=== PATIENT | female | born 1945 | race Caucasian/White ===

== ENCOUNTER → 2019-10-25 | Outpatient (CLI) | payer MEDICARE ==
[~2019-10-25] MED LIST: Bactrim Ds Tab1 EACH PO; CALCA500CH PO; CHOL10002 PO; ESTRTP VAG; FISH1000 PO; Lutein6 MG PO; PSYL5.85P PO; Super Calcium600 MG PO
[2019-10-26 14:44] LABS: Stool Occult Bld Immuno 1 Negative (NEGATIVE); Stool Occult Bld Immuno 2 Negative (NEGATIVE)
== END | disposition home or self-care (01) ==
LOC: LAB SHORT 09:00 → LAB EV 09:00
PROVIDERS: Internal Medicine Gastroenterology
DX: Z12.11 Encounter for screening for malignant neoplasm of colon (principal)
CPT/HCPCS: G0328

== ENCOUNTER → 2024-05-28 | Outpatient (CLI) | payer OTHER ==
[2024-05-28 10:33] LABS: BASOPHILS ABSOLUTE AUTO 0.03 K/mm3 (0.00-0.23); BASOPHILS PERCENT AUTO 0 % (0-2); EOSINOPHILS ABSOLUTE AUTO 0.01 K/mm3 (0.00-0.68); EOSINOPHILS PERCENT AUTO 0 % (0-6); Hematocrit 40.9 % (33.0-51.0); Hemoglobin 13.1 g/dL (11.5-16.0); IMMATURE GRAN ABSOLUTE AUTO 0.05 K/mm3 (0.00-0.10); IMMATURE GRAN PERCENT AUTO 0 % (0-1); LYMPHOCYTES ABSOLUTE AUTO 1.63 K/mm3 (0.84-5.20); LYMPHOCYTES PERCENT AUTO 13 % (21-46); MONOCYTES ABSOLUTE AUTO 0.78 K/mm3 (0.16-1.47); MONOCYTES PERCENT AUTO 6 % (4-13); Mean Corpuscular HGB 28.6 pg (26.0-34.0); Mean Corpuscular Volume 89 fL (80-100); Mean Platelet Volume 9.8 fL (9.1-12.4); NEUTROPHILS ABSOLUTE AUTO 9.86 K/mm3 (1.96-9.15); NEUTROPHILS PERCENT AUTO 80 % (41-73); Platelet Count 240 K/mm3 (150-400); RDW Coefficient Variation 12.7 % (11.7-14.2); RDW Standard Deviation 41.1 fL (35.1-46.3); Red Blood Cell Count 4.58 M/mm3 (3.80-5.20); White Blood Cell Count 12.36 K/mm3 (4.00-11.30)
[2024-05-28 10:43] LABS: Albumin, Blood 3.3 g/dL (3.4-5.0); Albumin/Globulin Ratio 0.8 (0.8-1.8); Bilirubin, Total 0.8 mg/dL (0.1-1.0); Calcium, Blood 8.6 mg/dL (8.5-10.1); Creatinine, Blood 0.91 mg/dL (0.40-1.00); Globulin, Blood 3.9 g/dL (2.2-4.0); Potassium, Blood 3.7 mmol/L (3.5-5.5); Total Protein, Blood 7.2 g/dL (6.4-8.2)
== END ==
LOC: LAB SHORT 10:27 → LAB 10:27
PROVIDERS: Physician Assistant
DX: R10.32 Left lower quadrant pain (principal); R82.81 Pyuria
CPT/HCPCS: 80053; 83690; 85025

== ENCOUNTER 2024-12-04 10:55 | Day surgery (SDC) | payer OTHER ==
[~2024-12-04] VITALS: Ht 162.6 cm; Wt 61.7 kg
[~2024-12-04 10:55] MED LIST changes: +MIRT15
[2024-12-04 12:59] VITALS: BP 103/70
== END 2024-12-04 13:22 | disposition home or self-care (01) ==
LOC: ORSCSDS 10:55
PROVIDERS: Specialist
PROC: 0DJD8ZZ Inspection of Lower Intestinal Tract, Via Natural or Artificial Opening Endoscopic (ICD-10-PCS; principal; 2024-12-04 12:30)
DX: Z12.11 Encounter for screening for malignant neoplasm of colon (principal); K64.8 Other hemorrhoids; K57.30 Diverticulosis of large intestine without perforation or abscess without bleeding; Z86.0101 Personal history of adenomatous and serrated colon polyps
CPT/HCPCS: J2704; J7120

== ENCOUNTER 2025-01-17 09:58 | Emergency (ER) | payer OTHER ==
[~2025-01-17] VITALS: Ht 162.6 cm; Wt 63.5 kg
[2025-01-17 11:31] VITALS: BP 138/64
[2025-01-17] MEDS ORDERED: Ketorolac Tromethamine 30mg Vial IM ONE (11:40)
[2025-01-17] MEDS ORDERED: HYDROCODONE-AC1 EA13 PO (15:21)
[2025-01-17] MEDS ORDERED: HYDR1TAB94 PO (15:24)
== END 2025-01-17 16:04 | disposition home or self-care (01) ==
LOC: ER 09:58
DX: S52.572A Other intraarticular fracture of lower end of left radius, initial encounter for closed fracture (principal); S52.612A Displaced fracture of left ulna styloid process, initial encounter for closed fracture; M25.512 Pain in left shoulder; M79.622 Pain in left upper arm; R07.89 Other chest pain; Z88.8 Allergy status to other drugs, medicaments and biological substances; Z79.899 Other long term (current) drug therapy; Z59.89 Other problems related to housing and economic circumstances; W19.XXXA Unspecified fall, initial encounter
CPT/HCPCS: 71045; 73030; 73060; 73110; 96372; 99283-25; J1885

== ENCOUNTER 2025-01-29 11:42 | Day surgery (SDC) | payer OTHER ==
[~2025-01-29] VITALS: Ht 162.6 cm; Wt 63.1 kg
[~2025-01-29 11:42] MED LIST changes: +HYDR1TAB94 PO; +HYDROCODONE-AC1 EA13 PO
[2025-01-29] MEDS ORDERED: CeFAZolin Sodium 2,000 MG VIAL ONE (12:12)
[2025-01-29] MEDS ORDERED: HYDROmorphone HCl/Pf 1MG SYR ONE ×2 (12:36→15:17)
[2025-01-29] MEDS ORDERED: Midazolam HCl 1MG / ML 2ML Vial ONE (12:37)
[2025-01-29] MEDS ORDERED: Bupivacaine 0.5% W/EPI 1:200000 SDV 30 ML Vial ONE (12:57)
--- NOTE | 2025-01-29 13:09 | NUR ---
01/29/25 5534 CLARISSA EDWARDS AT BEDSIDE FOR ANESTHESIA AND SURGEON CONSULTS
[2025-01-29] MEDS ORDERED: Ondansetron HCl 2 MG / ML 2ML Vial ONE (13:42)
[2025-01-29] MEDS ORDERED: Dexamethasone Sod Phos 10 MG/ML 1ML VIAL ONE (13:42)
[2025-01-29] MEDS ORDERED: Ketorolac Tromethamine 30mg Vial ONE (14:31)
[2025-01-29] MEDS ORDERED: FentaNYL Citrate 50 MCG/ML 2 ML Injection ONE (14:58)
[2025-01-29] MEDS ORDERED: Bupivacaine 0.5% HCl 5 MG/ML 30MLVIAL ONE (15:32)
[2025-01-29 15:50] VITALS: BP 117/73
[2025-01-29] MEDS ORDERED: OxyCODONE 5 mg/Acetamin 325 mg TABLET ONE (16:35)
--- NOTE | 2025-01-29 16:41 | NUR ---
01/29/25 1641 Rianna Menon REPORT FROM SANDRITA GIBBONS. PT IN RECLINER, REPORTS PAIN MANAGEABLE AT 3/10 IN LEFT WRIST. STS LEFT SHOULDER IS ALSO SORE. PT ATE APPLESAUCE, COOKIES AND STARRY, TOLERATING WELL. PT GIVEN PERCOCET 5/325 PER MD D/C ORDER.
== END 2025-01-29 17:05 | disposition home or self-care (01) ==
LOC: ORSCSDS 11:42
PROVIDERS: Orthopaedic Surgery
PROC: 0PSJ04Z Reposition Left Radius with Internal Fixation Device, Open Approach (ICD-10-PCS; principal; 2025-01-29 13:15)
DX: S52.552A Other extraarticular fracture of lower end of left radius, initial encounter for closed fracture (principal); W18.30XA Fall on same level, unspecified, initial encounter; E78.00 Pure hypercholesterolemia, unspecified; Z79.899 Other long term (current) drug therapy
CPT/HCPCS: A9270; C1713; J0690; J1100; J1171; J1885; J2250; J2405; J2704; J3010; J7120